=== PATIENT | female | born 1985 | race Hispanic/Latino ===

== ENCOUNTER 2022-09-15 05:34 | Inpatient (IN) | payer BC ==
[2022-09-12 12:12] LABS: #Monocytes 0.6 10x3/uL (0.0-1.1); #Neutrophils 5.6 10x3/uL (1.5-8.4); %Basophils 0.3 % (0.0-2.0); %Eosinophils 0.4 % (0.0-6.0); %Lymphocytes 13.7 % (18.0-47.0); %Monocytes 7.6 % (0.0-10.0); %Neutrophils 77.4 % (40.0-75.0); Hemoglobin 12.9 g/dL (12.0-15.5); Mean Corpuscular HGB CONC 35.3 g/dL (32.0-36.0); Mean Corpuscular Hemoglobin 31.1 pg (27.0-33.0); Mean Platelet Volume 10.2 fl (7.4-10.4); Platelet Count 215 10x3/uL (150-450); RBC Distribution Width 13.6 % (11.5-14.5); Red Blood Cell (RBC) Count 4.15 10x6/uL (3.90-5.03); White Blood Cell (WBC) Count 7.2 10x3/uL (3.5-10.5)
[2022-09-12 12:43] LABS: SARS-CoV-2 NAA Rapid Test Not Detected (NotDetected); Syphilis Antibody Nonreactive (Nonreactive); Syphilis Antibody Index 0.03 S/CO (<1.00 Non-Reactive)
[2022-09-12 12:44] LABS: HBSAg Index 0.14 S/CO (0-0.99); Hep B Surf Ag Non-Reactive S/CO (NonReactive)
[2022-09-15] MEDS ORDERED: CEFAZOLIN 2 GM in Sodium Chloride 0.9% 100 ML IVPB SCH (05:44)
[2022-09-15] MEDS ORDERED: Bicitra 30 ML UDCUP PO PRN (05:44)
[2022-09-15] MEDS ORDERED: Promethazine HCl 25 MG/ML VIAL IM PRN ×2 (05:44→07:02)
[2022-09-15] MEDS ORDERED: Famotidine/PF 20 mg/2ml Vial SLOW IVP PRN (05:44)
[2022-09-15] MEDS ORDERED: hydrALAZINE 20 MG/ML VIAL SLOW IVP PRN ×2 (05:44→11:26)
[2022-09-15] MEDS ORDERED: Ondansetron PF 4 MG/2 ML Vial IVP PRN ×2 (05:44→07:02)
[2022-09-15] MEDS ORDERED: Lactated Ringer's 1,000 ML IV SCH (05:44)
[2022-09-15 06:09] VITALS: BMI 29.0
[2022-09-15] MEDS ORDERED: Dexamethasone 4 mg/ml Vial ONE (06:46)
[2022-09-15] MEDS ORDERED: Fentanyl 100 MCG/2 ML VIAL ONE (06:46)
[2022-09-15] MEDS ORDERED: Ondansetron PF 4 MG/2 ML Vial ONE (06:46)
[2022-09-15] MEDS ORDERED: Phenylephrine 10 MG/ML VIAL ONE (06:46)
[2022-09-15] MEDS ORDERED: Morphine PF 10 MG/10 ML VIAL ONE (06:46)
[2022-09-15] MEDS ORDERED: Oxytocin 10 UNITS/ML VIAL ONE (06:47)
[2022-09-15] MEDS ORDERED: Meperidine HCl/PF 25 MG/ML VIAL SLOW IVP PRN (07:02)
[2022-09-15] MEDS ORDERED: Ondansetron HCl/PF 4 MG/2 ML Vial IVP PRN (07:02)
[2022-09-15] MEDS ORDERED: Naloxone HCl 0.4 mg/ml Vial IV PRN (07:02)
[2022-09-15] MEDS ORDERED: diphenhydrAMINE 50 MG/ML VIAL IVP PRN (07:02)
[2022-09-15] MEDS ORDERED: Moisturizing Cream (Eucerin) 113 GM JAR TOP PRN (07:02)
[2022-09-15] MEDS ORDERED: Ketorolac Tromethamine 30 MG/ML VIAL IVP PRN (07:02)
[2022-09-15] MEDS ORDERED: Naloxone HCl 0.4 mg/ml Vial IVP PRN ×2 (07:02)
[2022-09-15] MEDS ORDERED: Fentanyl 100 MCG/2 ML VIAL SLOW IVP PRN (07:02)
[2022-09-15] MEDS ORDERED: Promethazine HCl 25 MG SUPP PR PRN (07:02)
[2022-09-15] MEDS ORDERED: HYDROmorphone 2 MG/ML VIAL SLOW IVP PRN (07:02)
[2022-09-15] MEDS ORDERED: Communication Order-Pharmacy FS SCH (07:15)
[2022-09-15] MEDS ORDERED: Ketorolac Tromethamine 30 MG/ML VIAL IVP SCH (07:15)
[2022-09-15] MEDS ORDERED: NS w/ Oxytocin 30 units 500 ML ONE (10:02)
[2022-09-15] MEDS ORDERED: Lanolin Ointment 7 GM TUBE TOP PRN (11:26)
[2022-09-15] MEDS ORDERED: Meperidine HCl/PF 25 MG/ML VIAL IM PRN (11:26)
[2022-09-15] MEDS ORDERED: Acetaminophen 325 MG TAB PO PRN (11:26)
[2022-09-15] MEDS ORDERED: HYDROcodone/Acetaminophen 5/325 mg Tablet PO PRN (11:26)
[2022-09-15] MEDS ORDERED: Zolpidem Tartrate 5 MG TAB PO PRN (11:26)
[2022-09-15] MEDS ORDERED: diphenhydrAMINE 25 MG CAP PO PRN (11:26)
[2022-09-15] MEDS ORDERED: Bisacodyl 10 MG SUPP PR PRN (11:26)
[2022-09-15] MEDS ORDERED: Boostrix 0.5 ML (Tdap) VIAL (>/=7 yrs of age) IM ONE (11:26)
[2022-09-15] MEDS ORDERED: Prenatal Vitamin 1 TAB PO SCH (11:30)
[2022-09-15] MEDS ORDERED: Docusate 100 MG CAP PO SCH (11:30)
[2022-09-15] MEDS: Docusate 100 MG CAP PO SCH (22:08)
[2022-09-16] MEDS: HYDROcodone/Acetaminophen 5/325 mg Tablet PO PRN ×4 (01:12→19:35)
[2022-09-16 04:13] LABS: Mean Corpuscular HGB CONC 35.8 g/dL (32.0-36.0); Mean Corpuscular Hemoglobin 31.5 pg (27.0-33.0); Mean Platelet Volume 10.3 fl (7.4-10.4); Platelet Count 176 10x3/uL (150-450); RBC Distribution Width 13.5 % (11.5-14.5); Red Blood Cell (RBC) Count 3.17 10x6/uL (3.90-5.03); White Blood Cell (WBC) Count 11.8 10x3/uL (3.5-10.5)
[2022-09-16] MEDS: Docusate 100 MG CAP PO SCH ×2 (07:57→19:35)
[2022-09-16] MEDS: Simethicone Chewable 80 MG TAB PO PRN (07:57)
[2022-09-16] MEDS: Prenatal Vitamin 1 TAB PO SCH (07:57)
[2022-09-16] MEDS ORDERED: Eucerin (Mineral Oil/Petrolatum,White) 30 gm Jar TOP PRN (11:07)
[2022-09-16] MEDS ORDERED: Moisturizing Cream (Eucerin) 113 GM JAR TOP PRN (11:15)
[2022-09-17 07:56] VITALS: BP 120/76; TEMP 98.1
[2022-09-17] MEDS: Docusate 100 MG CAP PO SCH (10:23)
[2022-09-17] MEDS: Prenatal Vitamin 1 TAB PO SCH (10:23)
[2022-09-17] MEDS: HYDROcodone/Acetaminophen 5/325 mg Tablet PO PRN (10:23)
[2022-09-17] MEDS: Simethicone Chewable 80 MG TAB PO PRN (10:23)
== END 2022-09-17 16:55 | disposition home or self-care (01) | DRG 788 ==
LOC: CSHLD 05:34 → CSHPP 11:10
PROVIDERS: ADMIT Obstetrics & Gynecology; ATTEND Obstetrics & Gynecology
PROC: 10D00Z1 Extraction of Products of Conception, Low, Open Approach (ICD-10-PCS; principal; 2022-09-15)
DX: O32.1XX0 Maternal care for breech presentation, not applicable or unspecified (principal); Z3A.39 39 weeks gestation of pregnancy; Z37.0 Single live birth; Z20.822 Contact with and (suspected) exposure to COVID-19; Z88.8 Allergy status to other drugs, medicaments and biological substances
CPT/HCPCS: 36415; 51702; 85025; 85027; 86780; 86850; 86900; 86901; 87340; J1100; J2274; J2370; J2405; J2590; J3010; S0028; U0002